=== PATIENT | male | born 1990 | race Caucasian/White ===

== ENCOUNTER 2017-09-17 12:42 | Emergency (ER) | payer BC ==
[2017-09-17] MEDS ORDERED: ceFAZolin 1 GM Vial IVPUSH ONE (13:35)
[2017-09-17] MEDS ORDERED: Sodium Chloride 0.9% 10 ML Syringe FLUSH PRN (13:35)
[2017-09-17] MEDS ORDERED: Diphtheria/Tetanus Toxoids,Adult (Td) 0.5 ML Syringe IM ONE (13:37)
--- NOTE | 2017-09-17 13:41 | EDM.PDOC ---
ED HPI GENERAL MEDICAL PROBLEM - General Chief Complaint: General Stated Complaint: R INDEX FINGER TRAUMA Time Seen by Provider: 09/17/17 13:01 Source of Information: Reports: Patient History Limitations: Reports: No Limitations - History of Present Illness INITIAL COMMENTS - FREE TEXT/NARRATIVE: Patient was trying to place trailer hitch back onto block and somehow managed to get his left index finger pinched between the two. Traumatic amputation of left index finger's tip resulted, and he was driven to ER by a friend. 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 Denies any significant past medical history. Has not had tetanus updated since approximately 10 years ago. Denies other injuries. Treatments RN FAMILY PRACTICE: Reports: Dressing(s) - Related Data Allergies Allergy/AdvReac Type Severity Reaction Status Date / Time No Known Allergies Allergy Verified 09/17/17 12:52 Home Meds: Home Meds . [No Known Home Meds] 09/17/17 [History] Past Medical History Gastrointestinal History: Reports: Other (See Below) Other Gastrointestinal History: ulcers - Past Surgical History HEENT Surgical History: Reports: Other (See Below) Other HEENT Surgeries/Procedures: wisdom teeth removal Social & Family History - Family History Family Medical History: Noncontributory - Tobacco Use Smoking Status *Q: Former Smoker Years of Tobacco use: 4 Packs/Tins Daily: 0.2 Used Tobacco, but Quit: Yes Month Tobacco Last Used: oct - Caffeine Use Caffeine Use: Reports: None - Alcohol Use Days Per Week of Alcohol Use: 7 Number of Drinks Per Day: 4 Total Drinks Per Week: 28 - Recreational Drug Use Recreational Drug Use: No ED ROS GENERAL - Review of Systems Review Of Systems: ROS reveals no pertinent complaints other than HPI. ED EXAM, GENERAL - Physical Exam Exam: See Below Exam Limited By: No Limitations General Appearance: Alert, WD/WN, No Apparent Distress (Did get a little diaphoretic after returning from Xray and having wound unwrapped for imaging. ) Eye Exam: Bilateral Eye: EOMI, PERRL Head: Atraumatic, Normocephalic Respiratory/Chest: No Respiratory Distress Peripheral Pulses: 2+: Radial (L), Radial (R) Extremities: Other (Clean amputation of distal left index finger noted, just past DIP joint. No active bleeding. No additional injury to hand/fingers noted. Hand is vascularly intact. ) Neurological: Alert, Oriented, Normal Cognition, Normal Gait Psychiatric: Normal Affect, Normal Mood Skin Exam: Warm, Dry, Normal Color Course - Vital Signs Last Recorded V/S: Last Vital Signs Temp 36.2 C 09/17/17 12:44 Pulse 67 09/17/17 14:52 Resp 16 09/17/17 14:52 BP 133/88 09/17/17 14:52 Pulse Ox 100 09/17/17 14:52 - Orders/Labs/Meds Meds: Medications Discontinued Medications Generic Name Dose Route Start Last Admin Trade Name Freq PRN Reason Stop Dose Admin Cefazolin Sodium 1 gm 09/17/17 13:35 09/17/17 13:49 Ancef IVPUSH 09/17/17 13:36 1 gm ONETIME ONE Administration Morphine Sulfate 2 mg 09/17/17 14:03 09/17/17 14:07 Morphine IVPUSH 09/17/17 14:04 2 mg ONETIME ONE Administration Ondansetron HCl 4 mg 09/17/17 14:03 09/17/17 14:07 Zofran IVPUSH 09/17/17 14:04 4 mg ONETIME ONE Administration Sodium Chloride 10 ml 09/17/17 13:35 09/17/17 14:02 Saline Flush FLUSH 10 ml ASDIRECTED PRN Administration Keep Vein Open Tetanus/Diphtheria Toxoids 0.5 ml 09/17/17 13:37 09/17/17 13:46 Tenivac IM 09/17/17 13:38 0.5 ml .ONCE ONE Administration - Radiology Interpretation Free Text/Narrative:: Xray confirms amputation located distal to distal IP joint of left second finger. - Re-Assessments/Exams Free Text/Narrative Re-Assessment/Exam: 09/17/17 13:44 Call placed to [facility]. Discussed patient with , on-call hand surgeon today. Given location of amputation, and amount of damage to portion of finger that was amputated ( Crushed appearance in photo), it was felt that any attempt to re-attach the damaged portion would be futile. \ Plans made for patient's friend to take him to [facility] to have wound surgically attended to by . Will give Rocephin as well as Tetanus update in ER. Pain medication will also be given. Patient has not had anything to eat since 229. He was warned to remain NPO while en route to [facility] for the surgery. Wound soaked in Betadine, dressed. Plan is to discharge patient from ER and have him be driven directly to [facility] ER to be evaluated by . Departure - Departure Time of Disposition: 14:30 Disposition: DC/Tfer to Acute Hospital 02 Condition: Good Clinical Impression: Amputation of finger of right hand Qualifiers: Encounter type: initial encounter Qualified Code(s): S68.119A - Complete traumatic metacarpophalangeal amputation of unspecified finger, initial encounter - Discharge Information Instructions: Ondansetron injection, Morphine injection solution Referrals: PCP,Unknown [Primary Care Provider] - Forms: ED Department Discharge, Interfacility Transfer EMTALA Additional Instructions: You are to drive directly to [facility] ER. Do not stop for any other reason. No drinking/eating until AFTER surgery is performed.
[2017-09-17] MEDS ORDERED: Ondansetron 4 MG/2 ML SDV IVPUSH ONE (14:03)
[2017-09-17] MEDS ORDERED: Morphine 2 MG/ML Syringe IVPUSH ONE (14:03)
[2017-09-17 14:52] VITALS: BP 133/88
== END 2017-09-17 15:10 ==
LOC: LL.ED 12:42
DX: S68.110A Complete traumatic metacarpophalangeal amputation of right index finger, initial encounter (principal); Z87.891 Personal history of nicotine dependence; W23.0XXA Caught, crushed, jammed, or pinched between moving objects, initial encounter
CPT/HCPCS: 73140; 90471; 90714; 96374; 96375; 99284; J0690; J2270; J2405; J7050